=== PATIENT | female | born 1955 | race Caucasian/White ===

== ENCOUNTER → 2016-11-01 | Outpatient (CLI) | payer OTHER, BC ==
--- NOTE | 2016-11-01 10:21 | BD ---
EXAMINATION TYPE: MG DEXA axial skeleton. DATE OF EXAM: 11/01/2016 CLINICAL HISTORY: M19.90 Osetoarthritis Height: 66.5 Weight: 163 FRAX RISK QUESTIONS: Alcohol (3 or more units per day): no Family History (Parent hip fracture): no Glucocorticoids (More than 3mos): no (Ex: prednisone, prednisolone, methylprednisolone, dexamethasone, and hydrocortisone). History of Fracture in Adulthood: no Secondary Osteoporosis: 1. Type 1 Diabetes: no 2. Hyperthyroidism: no 3. Menopause before 45: no 4. Malnutrition: no 5. Chronic liver disease: no Rheumatoid Arthritis: no Current Tobacco Use: no RISK FACTORS HISTORY OF: Hip Fracture (Right/Left): no Spine Fracture: no History of Wrist Fracture: no Surgery to Spine/Hip(right/left)/Wrist (right/left): no Family History of Osteoporosis: no Active: yes Diet low in dairy products/other sources of calcium: no Postmenopausal woman: yes Take estrogen and/or progesterone medications: no Lost more than 2 inches in height since high school: no Frequent falls: no Poor Health: no Hyperparathyroidism: no Adrenal Insufficiency: no MEDICATIONS: Prednisone or other steroids: no Thyroid Medications: no Osteoporosis Medications: no Additional Medications: cholesterol meds, Vitamin D & calcium Additional History: lower back pain/osteoarthritis EXAM MEASUREMENTS: Bone mineral densitometry was performed using the User Replay System. Bone mineral density as measured about the Lumbar spine is: ----- L1-L4(G/cm2): 1.266 T Score Values are as follows: ----- L2: 0.4 ----- L3: 1.3 ----- L4: 0.3 ----- L1-L4: 0.7 Bone mineral density BASELINE Bone mineral density about the R hip (g/cm2): 0.931 Bone mineral density about the L hip (g/cm2): 0.945 T Score values are as follows: -----R Neck: -0.8 -----L Neck: -0.7 -----R Total: -0.2 -----L Total: 0.1 Bone mineral density BASELINE IMPRESSION: Normal (Values between +1 and -1 indicate normal bone mass). Consider repeating this study in 5 year s or sooner if there is some new clinical indication. Lumbar Spine , Bilateral Necks & Bilateral Tota ls NOTE: T-SCORE=SD OF THE YOUNG ADULT MEAN.
== END | disposition home or self-care (01) ==
LOC: RADBDWWP 07:47
PROVIDERS: ATTEND Family Medicine
DX: M19.90 Unspecified osteoarthritis, unspecified site (principal)
CPT/HCPCS: 77080

== ENCOUNTER → 2018-07-28 | Day surgery (SDC) | payer OTHER, BC ==
[2018-07-23 16:00] VITALS: BMI 24.3
[~2018-07-28] MED LIST: LACTATED RINGERS 1,000 ML IV SCH; LIDOCAINE 1% INJ 10MG/ML (20 ML MDV) ONE; PROPOFOL 10 MG/ML 20 ML VIAL IV ONE; fentaNYL (PF) 50 MCG/ML 2 ML AMP ONE
[2018-07-28 07:17] VITALS: TEMP 97.1
--- NOTE | 2018-07-28 07:57 | P.GSHP ---
History of Present Illness H&P Date: 07/28/18 Chief Complaint: GERD, diverticulitis This is a 6-year-old female has a history of GERD. Patient was also quite the left lower quadrant pain and diverticulitis. She was a safer EGD and colonoscopy. Past Medical History Past Medical History: Hyperlipidemia Additional Past Medical History / Comment(s): raynaud's History of Any Multi-Drug Resistant Organisms: None Reported Past Surgical History: Cholecystectomy, Hernia Repair, Hysterectomy Additional Past Surgical History / Comment(s): HIATAL HERNIA. colonoscopy, egd Past Anesthesia/Blood Transfusion Reactions: No Reported Reaction Smoking Status: Former smoker - Past Family History Mother Family Medical History: No Reported History Medications and Allergies Home Medications Medication Instructions Recorded Confirmed Type Aspirin 81 mg PO DAILY 05/24/15 07/28/18 History Atorvastatin [Lipitor] 10 mg PO DAILY 07/23/18 07/28/18 History amLODIPine BESYLATE [Norvasc] 2.5 mg PO DAILY 07/23/18 07/28/18 History Allergies Allergy/AdvReac Type Severity Reaction Status Date / Time No Known Allergies Allergy Verified 07/23/18 15:56 Surgical - Exam Vital Signs Temp Pulse Resp BP Pulse Ox 97.1 F L 99 14 138/73 99 07/28/18 07:16 07/28/18 07:16 07/28/18 07:16 07/28/18 07:16 07/28/18 07:16 - General well developed, well nourished, no distress - Eyes PERRL - ENT normal pinna - Neck no masses - Respiratory normal expansion - Cardiovascular Rhythm: regular - Abdomen Abdomen: soft, non tender Assessment and Plan Assessment: GERD, diverticula is. We'll perform EGD and colonoscopy
[2018-07-28 08:27] VITALS: RESP 18
[2018-07-28 08:43] VITALS: BP 118/75; PULSE 69
--- NOTE | 2018-07-28 09:08 | P.OP ---
Date of Procedure: 07/28/18 Preoperative Diagnosis: GERD Diverticulitis Postoperative Diagnosis: Antral gastritis Moderate Diverticulosis of sigmoid colon Procedure(s) Performed: EGD Colonoscopy Anesthesia: MAC Surgeon: Elbert Grimm Pathology: other (Antrum) Condition: stable Disposition: PACU Description of Procedure: The patient's placed on the endoscopy table in the lateral position she received IV sedation. The gastric was placed oropharynx and passed into the esophagus and stomach. The scope was then placed through the pylorus. The first and second portion of the duodenum appeared normal. The scope was then brought back the antrum this. Mildly inflamed. A biopsy was performed. Scope was then retroflexed and the remainder of the stomach appeared normal. There was no evidence of a hiatal hernia. The GE junction was at 40 cm. The distal esophagus appeared normal. The proximal esophagus appeared normal. Scope was withdrawn for patient. Next digital rectal exam was performed which revealed no abnormalities. The flexible colonoscope was then placed patient anus and passed throughout the entire colon. The ileocecal valve was visualized. The cecum, ascending and transverse colon appeared normal. In the descending and sigmoid colon there was diverticula noted. There was significant diverticulosis of the sigmoid colon. The scope was brought back the rectum and this appeared normal. Scope was withdrawn for patient.
== END | disposition home or self-care (01) ==
LOC: ORWHC2ENDO 06:52
PROVIDERS: ATTEND Surgery
DX: K29.50 Unspecified chronic gastritis without bleeding (principal); K57.30 Diverticulosis of large intestine without perforation or abscess without bleeding; K44.9 Diaphragmatic hernia without obstruction or gangrene; K21.9 Gastro-esophageal reflux disease without esophagitis; I10 Essential (primary) hypertension; I73.00 Raynaud's syndrome without gangrene; E78.5 Hyperlipidemia, unspecified; Z79.82 Long term (current) use of aspirin; Z87.891 Personal history of nicotine dependence; Z79.899 Other long term (current) drug therapy; Z90.49 Acquired absence of other specified parts of digestive tract
CPT/HCPCS: 88305; 45378; 43239; J2001; J3010; J2704

== ENCOUNTER 2019-09-25 14:28 | Emergency (ER) | payer BC ==
[2019-09-25 14:42] VITALS: TEMP 97.7
[2019-09-25] MEDS ORDERED: MORPHINE SULFATE 4 MG/ML SYRINGE IVP STA (15:17)
--- NOTE | 2019-09-25 15:19 | ED ---
General Adult HPI - General Chief complaint: Headache Stated complaint: burning feeling in feet that shoots through body Time Seen by Provider: 09/25/19 15:06 Source: patient, RN notes reviewed Mode of arrival: wheelchair Limitations: no limitations - History of Present Illness Initial comments: 63-year-old female with a past medical history of hyperlipidemia, Raynaud's presents to the emergency determine for a chief complaint of burning in the legs and headache. Patient states burning is negative to the chest back and arms as well. Patient states she was told by her primary care she has nerve damage. Patient has been trying to see a neurologist but cannot get in for another couple weeks. Patient states this has been ongoing for several months however worsened in the past 3 weeks. Denies weakness in the arms or legs. Denies diabetes.Patient has no other complaints at this time including shortness of breath, chest pain, abdominal pain, nausea or vomiting, headache, or visual changes. - Related Data Home Medications Medication Instructions Recorded Confirmed Aspirin 81 mg PO DAILY 05/24/15 07/28/18 Atorvastatin [Lipitor] 10 mg PO DAILY 07/23/18 07/28/18 amLODIPine BESYLATE [Norvasc] 2.5 mg PO DAILY 07/23/18 07/28/18 Allergies Allergy/AdvReac Type Severity Reaction Status Date / Time No Known Allergies Allergy Verified 09/25/19 14:42 Review of Systems ROS Statement: Those systems with pertinent positive or pertinent negative responses have been documented in the HPI. ROS Other: All systems not noted in ROS Statement are negative. Past Medical History Past Medical History: Hyperlipidemia Additional Past Medical History / Comment(s): raynaud's History of Any Multi-Drug Resistant Organisms: None Reported Past Surgical History: Cholecystectomy, Hernia Repair, Hysterectomy Additional Past Surgical History / Comment(s): HIATAL HERNIA. colonoscopy, egd Past Anesthesia/Blood Transfusion Reactions: No Reported Reaction Past Psychological History: No Psychological Hx Reported Smoking Status: Former smoker - Past Family History Mother Family Medical History: No Reported History General Exam Limitations: no limitations General appearance: alert, in no apparent distress Head exam: Present: atraumatic, normocephalic, normal inspection Eye exam: Present: normal appearance, PERRL, EOMI. Absent: scleral icterus, conjunctival injection, periorbital swelling ENT exam: Present: normal exam, mucous membranes moist Neck exam: Present: normal inspection, full ROM. Absent: tenderness, meningismus, lymphadenopathy Respiratory exam: Present: normal lung sounds bilaterally. Absent: respiratory distress, wheezes, rales, rhonchi, stridor Cardiovascular Exam: Present: regular rate, normal rhythm, normal heart sounds. Absent: systolic murmur, diastolic murmur, rubs, gallop, clicks GI/Abdominal exam: Present: soft, normal bowel sounds. Absent: distended, tenderness, guarding, rebound, rigid Extremities exam: Present: normal capillary refill (Capillary refill less than 2 seconds in lower extremities bilaterally, DP and PT pulses 2+ bilaterally. Radial pulses 2+ in upper extremities.), other (Strength 5 out of 5 in upper and lower extremities bilaterally) Neurological exam: Present: alert, normal gait Course Vital Signs 09/25/19 09/25/19 14:37 16:10 Temperature 97.7 F Pulse Rate 104 H 66 Respiratory 18 16 Rate Blood Pressure 175/115 143/87 O2 Sat by Pulse 100 99 Oximetry Medical Decision Making - Medical Decision Making Chair and physical exam as documented. Sensation and neurovascular status intact in lower extremities. Strength 5 out of 5 in upper and lower extremities. CBC CMP unremarkable. CT brain shows mild bifrontal atrophy without acute intracranial abnormality seen. Patient was given morphine and had complete resolution of symptoms. This does some again neuropathy or paresthesia. I recommended she follow up with neurology and I did give her the name of another neurologist to see if she could get in earlier. Patient states she has not yet seen her primary care provider for this and will see her as well to calling for an appointment on Saturday. - Lab Data Result diagrams: 09/25/19 15:32 09/25/19 15:32 Lab Results 09/25/19 09/25/19 Range/Units 15:32 15:32 WBC 8.2 (3.8-10.6) k/uL RBC 4.99 (3.80-5.40) m/uL Hgb 15.6 (11.4-16.0) gm/dL Hct 48.1 H (34.0-46.0) % MCV 96.4 (80.0-100.0) fL MCH 31.3 (25.0-35.0) pg MCHC 32.4 (31.0-37.0) g/dL RDW 12.5 (11.5-15.5) % Plt Count 280 (150-450) k/uL Neutrophils % 69 % Lymphocytes % 20 % Monocytes % 5 % Eosinophils % 3 % Basophils % 1 % Neutrophils # 5.7 (1.3-7.7) k/uL Lymphocytes # 1.6 (1.0-4.8) k/uL Monocytes # 0.5 (0-1.0) k/uL Eosinophils # 0.2 (0-0.7) k/uL Basophils # 0.1 (0-0.2) k/uL Sodium 139 (137-145) mmol/L Potassium 3.9 (3.5-5.1) mmol/L Chloride 104 (98-107) mmol/L Carbon Dioxide 27 (22-30) mmol/L Anion Gap 8 mmol/L BUN 11 (7-17) mg/dL Creatinine 0.79 (0.52-1.04) mg/dL Est GFR (CKD-EPI)AfAm >90 (>60 ml/min/1.73 sqM) Est GFR (CKD-EPI)NonAf 81 (>60 ml/min/1.73 sqM) Glucose 123 H (74-99) mg/dL Calcium 9.8 (8.4-10.2) mg/dL Magnesium 2.0 (1.6-2.3) mg/dL Total Bilirubin 0.7 (0.2-1.3) mg/dL AST 29 (14-36) U/L ALT 28 (4-34) U/L Alkaline Phosphatase 117 (38-126) U/L Total Protein 7.4 (6.3-8.2) g/dL Albumin 4.4 (3.5-5.0) g/dL Disposition Clinical Impression: Neuropathy, Tingling in extremities Disposition: HOME SELF-CARE Condition: Good Instructions (If sedation given, give patient instructions): Paresthesia (ED) Additional Instructions: Please follow up with primary care as well as neurology. Given any worsening symptoms return to the emergency room. Is patient prescribed a controlled substance at d/c from ED?: No Referrals: Elvis Hurst MD [Medical Doctor] - 1-2 days Time of Disposition: 17:33
[2019-09-25 15:50] LABS: Basophils # (A) 0.1 k/uL (0-0.2); Basophils % (A) 1 %; Eosinophils # (A) 0.2 k/uL (0-0.7); Eosinophils % (A) 3 %; HCT 48.1 % (34.0-46.0); HGB 15.6 gm/dL (11.4-16.0); Lymphocytes # (A) 1.6 k/uL (1.0-4.8); Lymphocytes % (A) 20 %; MCH 31.3 pg (25.0-35.0); MCHC 32.4 g/dL (31.0-37.0); MCV 96.4 fL (80.0-100.0); Mean Platelet Volume 7.6; Monocytes # (A) 0.5 k/uL (0-1.0); Monocytes % (A) 5 %; Neutrophils # (A) 5.7 k/uL (1.3-7.7); Neutrophils % (A) 69 %; Platelet Count 280 k/uL (150-450); RBC 4.99 m/uL (3.80-5.40); RDW 12.5 % (11.5-15.5); WBC 8.2 k/uL (3.8-10.6)
[2019-09-25 15:59] LABS: ALT 28 U/L (4-34); AST 29 U/L (14-36); African American GFR (CKD) >90 (>60 ml/min/1.73 sqM); Albumin 4.4 g/dL (3.5-5.0); Alkaline Phosphatase 117 U/L (38-126); Anion Gap 8 mmol/L; Blood Urea Nitrogen 11 mg/dL (7-17); Calcium 9.8 mg/dL (8.4-10.2); Carbon Dioxide 27 mmol/L (22-30); Chloride 104 mmol/L (98-107); Glucose 123 mg/dL (74-99); Non-African American GFR(CKD) 81 (>60 ml/min/1.73 sqM); Potassium 3.9 mmol/L (3.5-5.1); Sodium 139 mmol/L (137-145); Total Bilirubin 0.7 mg/dL (0.2-1.3); Total Protein 7.4 g/dL (6.3-8.2)
--- NOTE | 2019-09-25 16:01 | CT ---
EXAMINATION TYPE: CT brain wo con DATE OF EXAM: 09/25/2019 COMPARISON: None HISTORY: 63-year-old female Headache with burning sensation. TECHNIQUE: Examination was done in axial plane without intravenous contrast. Coronal and sagittal r econstructions performed. CT DLP: 1095.4 mGycm Automated exposure control for dose reduction was used. FINDINGS: There is no evidence of acute intracranial hemorrhage, acute ischemic changes, mass, mass-effect, or extra-axial fluid collection. There is no effacement of cerebral sulci or basal subarachnoid cister ns. There is no hydrocephalus. There is no midline shift. Carter-white matter distinction is preserv ed. Mild bifrontal cortical atrophy. Mild atherosclerotic calcifications in the bilateral carotid siphons . Paranasal sinuses and mastoid air cells are well-pneumatized. Slight rightward nasal septal deviation . Orbits and globes are intact. IMPRESSION: Mild bifrontal atrophy. No acute intracranial abnormality seen.
[2019-09-25 16:11] VITALS: BP 143/87; PULSE 66; RESP 16
[2019-09-25] MEDS ORDERED: ACET/COD 300 MG/30 MG STARTER PACK 6 TAB BTL PO STA (17:59)
== END 2019-09-25 18:07 | disposition home or self-care (01) ==
LOC: EC 14:28
DX: G62.9 Polyneuropathy, unspecified (principal); G31.9 Degenerative disease of nervous system, unspecified; I73.00 Raynaud's syndrome without gangrene; E78.5 Hyperlipidemia, unspecified; Z79.82 Long term (current) use of aspirin; Z79.899 Other long term (current) drug therapy; Z87.891 Personal history of nicotine dependence
CPT/HCPCS: 36415; 80053; 83735; 85025; 70450; 96374; 99284; J2270

== ENCOUNTER → 2019-11-20 | Outpatient (CLI) | payer BC ==
--- NOTE | 2019-11-20 11:55 | US ---
EXAMINATION TYPE: US duplex aorta DATE OF EXAM: 11/20/2019 COMPARISON: None CLINICAL HISTORY: 64-year-old female I70.0 aortic calcification. Pt states outside MRI showed aortic abnormality TECHNIQUE: Multiple sonographic images of the abdominal aorta are obtained. FINDINGS: EXAM MEASUREMENTS: Abdominal Aorta: Proximal: 1.8 x 2.1 cm Mid: 2.2 x 2.7 cm Distal: 2.4 x 2.6 cm Bifurcation: SILVA: 1.1 x 1.1 cm JARETT: 1.1 x 1.1 cm Segments of fusiform dilatation are present along with atherosclerotic calcifications throughout. IMPRESSION: Segments of fusiform dilatation with atherosclerotic calcifications throughout. There is mild ectasia of the mid abdominal aorta up to 2.7 cm and of the distal abdominal aorta up to 2.6 cm. No AAA.
== END | disposition home or self-care (01) ==
LOC: RADUSWWP 09:40
PROVIDERS: ATTEND Family Medicine
DX: I70.0 Atherosclerosis of aorta (principal); I77.811 Abdominal aortic ectasia
CPT/HCPCS: 93979

== ENCOUNTER → 2020-03-29 | Outpatient (CLI) | payer BC ==
--- NOTE | 2020-04-28 09:58 | P.ARTDOP ---
Arterial Doppler LOWER EXTREMITY ARTERIAL DOPPLER: DATE OF SERVICE: 03/29/2020 Reason for study: Bilateral lower leg pain Doppler waveforms: Multiphasic throughout. Digital waveforms are somewhat blunted. Pulse volume recording: []. Pressure gradients: None. Ankle-brachial indices: Greater than 1 bilaterally. Toe brachial indices: 0.94 on the right, 1 on the left Impression: Normal study.
== END | disposition home or self-care (01) ==
LOC: RADUSWWP 12:48
PROVIDERS: ATTEND Family Medicine
DX: R20.2 Paresthesia of skin (principal)
CPT/HCPCS: 93922; 93923

== ENCOUNTER 2020-07-11 11:48 | Day surgery (SDC) | payer BC ==
[2020-07-08 08:21] VITALS: BMI 25.0
[~2020-07-11 11:48] MED LIST changes: -LIDOCAINE 1% INJ 10MG/ML (20 ML MDV) ONE; -PROPOFOL 10 MG/ML 20 ML VIAL IV ONE; -fentaNYL (PF) 50 MCG/ML 2 ML AMP ONE
[2020-07-11] MEDS ORDERED: LIDOCAINE 1% (10MG/ML) FOR IV START INTRADERMA ONE (12:13)
[2020-07-11 12:19] VITALS: TEMP 98.7
[2020-07-11] MEDS ORDERED: PROPOFOL 10 MG/ML 20 ML VIAL IV ONE (14:13)
[2020-07-11] MEDS ORDERED: LIDOCAINE 1% INJ 10MG/ML (20 ML MDV) ONE (14:13)
[2020-07-11 14:34] VITALS: RESP 16
[2020-07-11 14:54] VITALS: BP 121/77; PULSE 63
--- NOTE | 2020-07-11 15:42 | P.GSHP ---
History of Present Illness H&P Date: 07/11/20 .GERD Past Medical History Past Medical History: GERD/Reflux, Hyperlipidemia Additional Past Medical History / Comment(s): hiatal hernia, raynaud's, History of Any Multi-Drug Resistant Organisms: None Reported Past Surgical History: Cholecystectomy, Hernia Repair, Hysterectomy Additional Past Surgical History / Comment(s): hiatal hernia repair, Past Anesthesia/Blood Transfusion Reactions: No Reported Reaction Smoking Status: Former smoker - Past Family History Mother Family Medical History: No Reported History Medications and Allergies Home Medications Medication Instructions Recorded Confirmed Type Aspirin 81 mg PO DAILY 05/24/15 07/08/20 History Atorvastatin [Lipitor] 10 mg PO HS 07/23/18 07/08/20 History Famotidine [Pepcid] 20 mg PO BID 07/08/20 07/08/20 History Multivitamins, Thera [Multivitamin 1 tab PO DAILY 07/08/20 07/08/20 History (formulary)] Pregabalin [Lyrica] 150 mg PO TID 07/08/20 07/08/20 History Allergies Allergy/AdvReac Type Severity Reaction Status Date / Time No Known Allergies Allergy Verified 07/11/20 12:14 Surgical - Exam Vital Signs Temp Pulse Resp BP Pulse Ox 98.7 F 59 L 18 123/69 98 07/11/20 12:17 07/11/20 12:17 07/11/20 12:17 07/11/20 12:17 07/11/20 12:17 - General well developed, well nourished, no distress - Eyes PERRL - ENT normal pinna - Neck no masses - Respiratory normal expansion - Cardiovascular Rhythm: regular - Abdomen Abdomen: soft, non tender Assessment and Plan Assessment: GERD. We'll perform EGD.
--- NOTE | 2020-07-11 15:47 | P.OP ---
Date of Procedure: 07/11/20 Preoperative Diagnosis: .gerd Postoperative Diagnosis: Antral gastritis Recurrent hiatal hernia Procedure(s) Performed: EGD Anesthesia: MAC Surgeon: Elbert Grimm Pathology: other (antrum, cardia) Condition: stable Disposition: PACU Description of Procedure: the patient's placed on the endoscopy table in the lateral position. She received IV sedation. The gastroscope placed oropharynx past esophagus stomach. Scope then placed through the pylorus. The first and second portion of duodenum appeared normal. Scope was then brought back the antrum was inflamed a biopsy was performed. The scope was then retroflexed remainder stomach appeared normal. The GE junction was at 38 cm. Patient had a large recurrent hiatal hernia. The cardia there is evidence of inflammation. This area is biopsied. The distal esophagus appeared mildly inflamed. The proximal esophagus appeared normal. The scope was withdrawn for patient.
== END 2020-07-11 15:16 | disposition home or self-care (01) ==
LOC: ORWHC2ENDO 11:48
PROVIDERS: ATTEND Surgery
DX: K29.50 Unspecified chronic gastritis without bleeding (principal); K44.9 Diaphragmatic hernia without obstruction or gangrene; K21.9 Gastro-esophageal reflux disease without esophagitis; E78.5 Hyperlipidemia, unspecified; I73.00 Raynaud's syndrome without gangrene; Z90.49 Acquired absence of other specified parts of digestive tract; Z90.710 Acquired absence of both cervix and uterus; Z98.890 Other specified postprocedural states; Z87.891 Personal history of nicotine dependence; Z79.82 Long term (current) use of aspirin; Z79.899 Other long term (current) drug therapy
CPT/HCPCS: 88305; 43239; J2001; J2704

== ENCOUNTER → 2020-07-21 | Outpatient (CLI) | payer BC | END | disposition home or self-care (01) | LOC: LABWHC1 14:26 | PROVIDERS: ATTEND Surgery | DX: Z01.818 Encounter for other preprocedural examination (principal); R13.19 Other dysphagia | CPT/HCPCS: 86850; 86900; 86901; 93005 ==

== ENCOUNTER 2020-07-27 08:40 | Inpatient (IN) | payer BC ==
[~2020-07-27 08:40] MED LIST changes: +ACETAMINOPHEN TAB 500 MG TAB PO PRN; +HEPARIN SODIUM,PORCINE 5,000 UNIT/ML 1 ML VIAL SQ PRN; -LACTATED RINGERS 1,000 ML IV SCH; +ONDANSETRON 4 MG/2 ML VIAL IVP ONE
[2020-07-27] MEDS ORDERED: ONDANSETRON 4 MG/2 ML VIAL ONE (10:39)
[2020-07-27] MEDS: LACTATED RINGERS 1,000 ML IV SCH ×2 (11:00→17:17)
--- NOTE | 2020-07-27 11:19 | P.GSHP ---
History of Present Illness H&P Date: 07/27/20 Chief Complaint: Dysphagia This 64 female who presents today for laparoscopic hiatal hernia repair. Patient has a previous history of hiatal hernia. Approximately 17 years ago she has developed recurrent per esophageal hernia. He is reversed surgery including conversion O procedure and injury to the stomach liver spleen she also aware of the risk of recurrent dysphagia and GERD Past Medical History Past Medical History: GERD/Reflux, Hyperlipidemia, Musculoskeletal Disorder Additional Past Medical History / Comment(s): hiatal hernia, raynaud's, nerve damage right leg History of Any Multi-Drug Resistant Organisms: None Reported Past Surgical History: Cholecystectomy, Hernia Repair, Hysterectomy Additional Past Surgical History / Comment(s): hiatal hernia repair Past Anesthesia/Blood Transfusion Reactions: No Reported Reaction Smoking Status: Former smoker - Past Family History Mother Family Medical History: No Reported History Medications and Allergies Home Medications Medication Instructions Recorded Confirmed Type Aspirin 81 mg PO DAILY 05/24/15 07/27/20 History Atorvastatin [Lipitor] 10 mg PO HS 07/23/18 07/27/20 History Famotidine [Pepcid] 20 mg PO BID 07/08/20 07/27/20 History Multivitamins, Thera [Multivitamin 1 tab PO DAILY 07/08/20 07/27/20 History (formulary)] Pregabalin [Lyrica] 150 mg PO TID 07/08/20 07/27/20 History Zolpidem [Ambien] 10 mg PO HS PRN 07/22/20 07/27/20 History Allergies Allergy/AdvReac Type Severity Reaction Status Date / Time No Known Allergies Allergy Verified 07/27/20 11:12 Surgical - Exam Vital Signs Temp Pulse Resp BP Pulse Ox 98 F 74 16 133/74 99 07/27/20 10:47 07/27/20 10:47 07/27/20 10:47 07/27/20 10:47 07/27/20 10:47 - General well developed, well nourished, no distress - Eyes PERRL - ENT normal pinna - Neck no masses - Respiratory normal expansion - Cardiovascular Rhythm: regular - Abdomen Abdomen: soft, non tender Assessment and Plan Assessment: Recurrent paraesophageal hernia. We'll perform laparoscopic repair.
[2020-07-27] MEDS ORDERED: DEXAMETHASONE SOD PHOSPHATE 4 MG/ML 1 ML VIAL IV ONE (11:28)
[2020-07-27] MEDS ORDERED: NEOSTIGMINE 1 MG/ML 10 ML VIAL ONE (12:08)
[2020-07-27] MEDS ORDERED: ePHEDrine SULFATE/0.9% NACL/PF 50 MG/5 ML SYRINGE IV ONE (12:08)
[2020-07-27] MEDS ORDERED: GLYCOPYRROLATE 0.2 MG/ML 2 ML VIAL ONE (12:08)
[2020-07-27] MEDS ORDERED: KETOROLAC 15 MG/ML 1 ML VIAL ONE (12:08)
[2020-07-27] MEDS ORDERED: LIDOCAINE 1% INJ 10MG/ML (20 ML MDV) ONE (12:08)
[2020-07-27] MEDS ORDERED: SUCCINYLCHOLINE CHLORIDE 100 MG/5 ML SYR IV ONE (12:08)
[2020-07-27] MEDS ORDERED: ROCURONIUM 10 MG/ML (5 ML VIAL) IV ONE (12:08)
[2020-07-27] MEDS ORDERED: HYDROmorphone (PF) 1 MG/ML ONE (12:08)
[2020-07-27] MEDS ORDERED: fentaNYL (PF) 50 MCG/ML 2 ML AMP ONE (12:08)
[2020-07-27] MEDS ORDERED: LACTATED RINGERS 1,000 ML IV ONE ×2 (12:50)
[2020-07-27] MEDS ORDERED: BUPIVACAINE (PF) 0.25% 30 ML VIAL SQ ONE (13:05)
[2020-07-27] MEDS ORDERED: ONDANSETRON 4 MG/2 ML VIAL IVP PRN (13:20)
--- NOTE | 2020-07-27 13:20 | P.OP ---
Date of Procedure: 07/27/20 Preoperative Diagnosis: Paraesophageal hernia Postoperative Diagnosis: Paraesophageal hernia Procedure(s) Performed: Laparoscopic repair of paraesophageal hernia with mesh [place] [employer] a Anesthesia: SG Surgeon: Elbert Grimm Estimated Blood Loss (ml): 10 Pathology: none sent Condition: stable Disposition: PACU Description of Procedure: Harmonic June
[2020-07-27] MEDS: HYDROmorphone 0.5 MG/0.5 ML SYRINGE IVP PRN ×4 (13:37→14:22)
[2020-07-27 14:28] LABS: African American GFR (CKD) >90 (>60 ml/min/1.73 sqM); Anion Gap 7 mmol/L; Blood Urea Nitrogen 12 mg/dL (7-17); Calcium 8.9 mg/dL (8.4-10.2); Carbon Dioxide 24 mmol/L (22-30); Chloride 107 mmol/L (98-107); Glucose 142 mg/dL (74-99); Non-African American GFR(CKD) 78 (>60 ml/min/1.73 sqM); Potassium 4.3 mmol/L (3.5-5.1); Sodium 138 mmol/L (137-145)
[2020-07-27] MEDS ORDERED: diphenhydrAMINE 50 MG/ML 1 ML VIAL IVP ONE (14:28)
--- NOTE | 2020-07-27 14:28 | P.CRDCN ---
History of Present Illness History of present illness: HISTORY OF PRESENTING ILLNESS This is a pleasant 64-year-old female past medical history significant for GERD and hyperlipidemia. 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 We have been asked to see in consultation for post operative nonsustained ventricular tachycardia. Patient presents today for a laparoscopic hiatal hernia repair with Dr. Grimm. Post op, during recovery patient went into 29 beat run of non-sustained ventricular tachycardia. Patient is seen and examined in recovery. Drowsy, alert and oriented x 4. BP 132/62 HR 56, afebrile, maintaing oxygen saturations on 6L simple mask. Ventricular tachycardia strip indicates a rate around 100bpm. EKG reveals sinus bradycardia with T wave inversions in leads III and aVF. Prior EKG on 07/21/2020 normal sinus rhythm with Twave inversions in lead III. Telemetry tracings at bedside indicate sinus bradycardia. Patient's current home medications include atorvastatin 10mg nightly, aspirin 81mg daily. REVIEW OF SYSTEMS At the time of my exam: CONSTITUTIONAL: Denies fever or chills. CARDIOVASCULAR: +mild left sided chest pain. Denies shortness of breath, orthopnea, PND or palpitations. RESPIRATORY: Denies cough. GASTROINTESTINAL: Denies abdominal pain, diarrhea, constipation, nausea or vomiting. MUSCULOSKELETAL: Denies myalgias. NEUROLOGIC: Denies numbness, tingling, headacbe or weakness. ENDOCRINE: Denies fatigue, weight change, polydipsia or polyurina. GENITOURINARY: Denies burning, hematuria or urgency with micturation. HEMATOLOGIC: Denies history of anemia or bleeding. PHYSICAL EXAMINATION CONSTITUTIONAL: No apparent distress. HEENT: Head is normocephalic. Pupils are equal, round. Sclerae anicteric. Mucous membranes of the mouth are moist. No JVD. No carotid bruit. CHEST EXAMINATION: Lungs are clear to auscultation. No chest wall tenderness is noted on palpation or with deep breathing. HEART EXAMINATION: Regular rate and rhythm. S1, S2 heard. No murmurs, gallops or rub. ABDOMEN: Soft, nontender. Positive bowel sounds. EXTREMITIES: 2+ peripheral pulses, no lower extremity edema and no calf tenderness. NEUROLOGIC EXAMINATION: Patient is awake, alert and oriented x3. ASSESSMENT Non-sustained ventricular tachycardia Hyperlipidemia Hiatal Hernia s/p laparoscopic hiatal hernia repair PLAN Will obtain labs: Troponin, BMP, Magnesium, TSH Will obtain 2D echo Will monitor patient on cardiac telemetry overnight Nurse Practitioner note has been reviewed, I agree with a documented findings and plan of care. Patient was seen and examined. Past Medical History Past Medical History: GERD/Reflux, Hyperlipidemia, Musculoskeletal Disorder Additional Past Medical History / Comment(s): hiatal hernia, raynaud's, nerve damage right leg History of Any Multi-Drug Resistant Organisms: None Reported Past Surgical History: Cholecystectomy, Hernia Repair, Hysterectomy Additional Past Surgical History / Comment(s): hiatal hernia repair Past Anesthesia/Blood Transfusion Reactions: No Reported Reaction Smoking Status: Former smoker - Past Family History Mother Family Medical History: No Reported History Medications and Allergies Home Medications Medication Instructions Recorded Confirmed Type Aspirin 81 mg PO DAILY 05/24/15 07/27/20 History Atorvastatin [Lipitor] 10 mg PO HS 07/23/18 07/27/20 History Famotidine [Pepcid] 20 mg PO BID 07/08/20 07/27/20 History Multivitamins, Thera [Multivitamin 1 tab PO DAILY 07/08/20 07/27/20 History (formulary)] Pregabalin [Lyrica] 150 mg PO TID 07/08/20 07/27/20 History Zolpidem [Ambien] 10 mg PO HS PRN 07/22/20 07/27/20 History Allergies Allergy/AdvReac Type Severity Reaction Status Date / Time No Known Allergies Allergy Verified 07/27/20 11:12 Physical Exam Vitals: Vital Signs Temp Pulse Resp BP Pulse Ox 07/27/20 14:00 56 L 14 132/62 96 07/27/20 13:45 59 L 16 135/67 94 L 07/27/20 13:23 97.4 F L 100 20 157/75 96 07/27/20 10:47 98 F 74 16 133/74 99 Intake and Output 07/26/20 07/27/20 07/27/20 22:59 06:59 14:59 Intake Total 1450 Output Total 5 Balance 1445 Intake: IV 1450 Output: Estimated Blood Loss 5 Other: Weight 82 kg Results Current Medications Generic Name Dose Route Start Last Admin Trade Name Freq PRN Reason Stop Dose Admin Enoxaparin Sodium 40 mg 07/28/20 09:00 Enoxaparin 40 Mg/0.4 Ml Syringe SQ DAILY BALAJI Fentanyl Citrate 50 mcg 07/27/20 07:00 Fentanyl (Pf) 50 Mcg/Ml 2 Ml Amp IV 07/27/20 23:00 Q3M PRN Pain Control Hydromorphone HCl 0.5 mg 07/27/20 07:00 07/27/20 13:56 Hydromorphone 0.5 Mg/0.5 Ml Syringe IVP 07/27/20 23:00 0.5 mg Q5M PRN Administration Pain Control Hydromorphone HCl 1 mg 07/27/20 13:20 Hydromorphone 1 Mg/Ml 1 Ml Syringe IVP Q4HR PRN Pain Lactated Ringer's 1,000 mls @ 20 mls/hr 07/26/20 08:15 07/27/20 11:00 Lactated Ringers IV 1,000 mls .Q24H BALAJI Administration Potassium Chloride/Dextrose/Sod Cl 1,000 mls @ 125 mls/hr 07/27/20 14:00 D5%-1/2ns-Kcl 20 Meq/L Iv Solution IV .Q8H BALAJI Ondansetron HCl 4 mg 07/27/20 13:20 Ondansetron 4 Mg/2 Ml Vial IVP Q6HR PRN Nausea And Vomiting Intake and Output 07/26/20 07/27/20 07/27/20 22:59 06:59 14:59 Intake Total 1450 Output Total 5 Balance 1445 Intake: IV 1450 Output: Estimated Blood Loss 5 Other: Weight 82 kg Patient Weight 07/28/20 06:59 Weight 82 kg
[2020-07-27 14:51] LABS: Basophils % (A) 1 %; Eosinophils # (A) 0.1 k/uL (0-0.7); Eosinophils % (A) 1 %; HCT 42.5 % (34.0-46.0); HGB 14.3 gm/dL (11.4-16.0); Lymphocytes # (A) 0.9 k/uL (1.0-4.8); Lymphocytes % (A) 11 %; MCH 31.9 pg (25.0-35.0); MCHC 33.7 g/dL (31.0-37.0); MCV 94.7 fL (80.0-100.0); Mean Platelet Volume 8.1; Monocytes # (A) 0.1 k/uL (0-1.0); Monocytes % (A) 1 %; Neutrophils % (A) 86 %; Platelet Count 192 k/uL (150-450); RBC 4.49 m/uL (3.80-5.40); RDW 13.1 % (11.5-15.5); WBC 8.1 k/uL (3.8-10.6)
[2020-07-27] MEDS ORDERED: HYDROmorphone 0.5 MG/0.5 ML SYRINGE IVP ONE (15:01)
[2020-07-27] MEDS: fentaNYL (PF) 50 MCG/ML 2 ML AMP IV PRN ×2 (15:05→15:27)
[2020-07-27] MEDS: D5-0.45% NACL WITH KCL 20MEQ/L 1,000 ML IV SCH (18:28)
[2020-07-27] MEDS ORDERED: ZOLPIDEM 10 MG TAB PO PRN (18:28)
--- NOTE | 2020-07-27 18:31 | P.CONS ---
History of Present Illness - Reason for Consult Consult date: 07/27/20 medical management - Chief Complaint Hernia repair - History of Present Illness 64 female with past medical history significant for GERD and hyperlipidemia who is currently s/p laparoscopic hiatal hernia repair. Currently she is doing well. Shortly after the surgery she was noted to have 29 beats run of nonsustained ventricular tachycardia. She is currnelty drowsy but denied any pain or sob. Vitals ok. She was already seen by cardiology, no cardiac history. EKG reveals sinus bradycardia with T wave inversions in leads III and aVF. Prior EKG on 07/21/2020 normal sinus rhythm with Twave inversions in lead III. Telemetry tracings at bedside indicate sinus bradycardia. Review of Systems Complete review of system performed, pertinent positives per HPI, otherwise negative Past Medical History Past Medical History: GERD/Reflux, Hyperlipidemia, Musculoskeletal Disorder Additional Past Medical History / Comment(s): hiatal hernia, raynaud's, nerve damage right leg History of Any Multi-Drug Resistant Organisms: None Reported Past Surgical History: Cholecystectomy, Hernia Repair, Hysterectomy Additional Past Surgical History / Comment(s): hiatal hernia repair Past Anesthesia/Blood Transfusion Reactions: No Reported Reaction Smoking Status: Former smoker - Past Family History Mother Family Medical History: No Reported History Medications and Allergies Home Medications Medication Instructions Recorded Confirmed Type Aspirin 81 mg PO DAILY 05/24/15 07/27/20 History Atorvastatin [Lipitor] 10 mg PO HS 07/23/18 07/27/20 History Famotidine [Pepcid] 20 mg PO BID 07/08/20 07/27/20 History Multivitamins, Thera [Multivitamin 1 tab PO DAILY 07/08/20 07/27/20 History (formulary)] Pregabalin [Lyrica] 150 mg PO TID 07/08/20 07/27/20 History Zolpidem [Ambien] 10 mg PO HS PRN 07/22/20 07/27/20 History Allergies Allergy/AdvReac Type Severity Reaction Status Date / Time No Known Allergies Allergy Verified 07/27/20 11:12 Physical Exam Vitals: Vital Signs Temp Pulse Resp BP Pulse Ox 07/27/20 16:00 96.1 F L 50 L 14 126/80 97 07/27/20 15:30 49 L 16 138/67 94 L 07/27/20 15:15 48 L 14 121/77 97 07/27/20 15:00 60 16 123/79 95 07/27/20 14:45 72 14 131/740 92 L 07/27/20 14:30 52 L 14 131/61 93 L 07/27/20 14:15 52 L 14 131/61 96 07/27/20 14:00 56 L 14 132/62 96 07/27/20 13:45 59 L 16 135/67 94 L 07/27/20 13:23 97.4 F L 100 20 157/75 96 07/27/20 10:47 98 F 74 16 133/74 99 Intake and Output 07/27/20 07/27/20 07/27/20 06:59 14:59 22:59 Intake Total 1450 Output Total 5 Balance 1445 Intake: IV 1450 Output: Estimated Blood Loss 5 Other: Weight 82 kg Constitutional: No acute distress, conversant, pleasant Eyes:Anicteric sclerae, moist conjunctiva, no lid-lag, PERRLA, ENMT: Oropharynx clear, no erythema, exudates Neck: Supple, FROM, no masses, or JVD, No carotid bruits, No thyromegaly Lungs: Clear to auscultation, Clear to percussion, Normal respiratory effort, no accessory muscle use Cardiovascular: Heart regular in rate and rhythm, No murmurs, gallops, or rubs, No peripheral edema Abdominal: Soft, Nontender, no guarding, rebound or rigidity, Normoactive bowel sounds, No hepatomegaly, No splenomegaly, No palpable mass Skin: Normal temperature, tone, texture, turgor, no induration, No subcutaneous nodules, No rash, lesions, No ulcers Extremities: No digital cyanosis, No clubbing, Pedal pulses intact and symmetrical, Radial pulses intact and symmetrical, No calf tenderness Psychiatric: Alert and oriented to person, place and time, appropriate affect, intact judgement Neuro: Muscles Strength 5/5 in all 4 extremities, Sensation to light touch grossly present throughout, Cranial nerves II-XII grossly intact, no focal sensory deficits Results CBC & Chem 7: 07/27/20 14:34 07/27/20 13:45 Labs: Abnormal Lab Results - Last 24 Hours (Table) 07/27/20 07/27/20 Range/Units 13:45 14:34 Lymphocytes # 0.9 L (1.0-4.8) k/uL Glucose 142 H (74-99) mg/dL Assessment and Plan Plan: Nonsustained v.tach Lytes, trops, TSH ok Cardio following Follow on echo, ordered. Hyperlipidemia Peripheral neuropathy Stable Resume meds S/P Laparoscopic repair of paraesophageal hernia Management per surgery Anticipated discharge 1-2 days Disposition: Home
[2020-07-27] MEDS: FAMOTIDINE 20 MG TAB PO SCH (20:33)
[2020-07-27] MEDS: HYDROmorphone 1 MG/ML 1 ML SYRINGE IVP PRN (20:34)
[2020-07-27] MEDS ORDERED: ATORVASTATIN 10 MG TAB PO SCH (21:00)
[2020-07-27] MEDS: PREGABALIN 75 MG CAP PO SCH (21:00)
[2020-07-28] MEDS: D5-0.45% NACL WITH KCL 20MEQ/L 1,000 ML IV SCH ×2 (00:13→02:24)
[2020-07-28] MEDS: HYDROmorphone 1 MG/ML 1 ML SYRINGE IVP PRN ×2 (00:28→07:56)
[2020-07-28] MEDS: PREGABALIN 75 MG CAP PO SCH (07:55)
[2020-07-28] MEDS: FAMOTIDINE 20 MG TAB PO SCH (07:56)
[2020-07-28] MEDS ORDERED: ENOXAPARIN 40 MG/0.4 ML SYRINGE SQ SCH (09:00)
[2020-07-28] MEDS ORDERED: ASPIRIN 81 MG PO SCH (09:00)
[2020-07-28] MEDS ORDERED: MULTIVITAMINS, THERA 1 EACH TAB PO SCH (09:00)
[2020-07-28] MEDS: LACTATED RINGERS 1,000 ML IV SCH (09:05)
[2020-07-28 09:26] VITALS: RESP 18
--- NOTE | 2020-07-28 09:44 | FL ---
EXAMINATION TYPE: FL esophagus cervic/pharynx DATE OF EXAM: 07/28/2020 COMPARISON: None HISTORY: Status post Miguel fundoplication TECHNIQUE: Single contrast technique with water-soluble contrast was utilized to evaluate the gastroe sophageal junction. FINDINGS: There is moderate hesitancy of contrast passing through the is on fundoplication surgery. N o extravasation is evident. Very minimal pneumoperitoneum is present compatible with postsurgical change. Fluoroscopy time: 0.53 minutes Images: 27 IMPRESSION: 1. No extravasation of contrast post Miguel fundoplication. 2. There is moderate hesitancy of contrast passing through the surgery site.
--- NOTE | 2020-07-28 09:53 | ECHOF ---
Referral Reason:non-sustained Vtach post op MEASUREMENTS -------- HEIGHT: 172.7 cm WEIGHT: 81.6 kg BP: 123/79 RVIDd: 3.0 cm (< 3.3) IVSd: 1.2 cm (0.6 - 1.1) LVIDd: 4.4 cm (3.9 - 5.3) LVPWd: 1.2 cm (0.6 - 1.1) IVSs: 1.9 cm LVIDs: 3.0 cm LVPWs: 1.5 cm LA Diam: 3.6 cm (2.7 - 3.8) Ao Diam: 2.7 cm (2.0 - 3.7) AV Cusp: 2.0 cm (1.5 - 2.6) MV EXCURSION: 8.785 mm (> 18.000) MV EF SLOPE: 71 mm/s (70 - 150) EPSS: 0.8 cm MV E Miguelito: 0.82 m/s MV DecT: 169 ms MV A Miguelito: 1.01 m/s MV E/A Ratio: 0.81 RAP: 5.00 mmHg RVSP: 32.66 mmHg FINDINGS -------- Resting bradycardia (HR<60bpm). This was a technically adequate study. The left ventricular size is normal. There is borderline concentric left ventricular hypertrophy. Overall left ventricular systolic function is normal with, an EF between 55 - 60 %. The right ventricle is normal in size. The left atrium is normal in size. The right atrium is normal in size. Interatrial and interventricular septum intact. The aortic valve is trileaflet and appears structurally normal. Mild mitral regurgitation is present. Mild tricuspid regurgitation present. Right ventricular systolic pressure is normal at < 35 mmHg. Trace/mild (physiologic) pulmonic regurgitation. The aortic root size is normal. Normal inferior vena cava with normal inspiratory collapse consistent with estimated right atrial pre ssure of 5 mmHg. There is no pericardial effusion. CONCLUSIONS -------- 1. The left ventricular size is normal. 2. There is borderline concentric left ventricular hypertrophy. 3. Mild mitral regurgitation is present. 4. Mild tricuspid regurgitation present. 5. Trace/mild (physiologic) pulmonic regurgitation. 6. There is no pericardial effusion. WATER CHASER: Gypsy Ramos RDCS
[2020-07-28 10:52] VITALS: BMI 28.3
[2020-07-28] MEDS: MAGNESIUM SULFATE-D5W PMX 1 GM in DEXTROSE/WATER 1 100ML.BAG IVPB SCH ×2 (10:57→12:29)
--- NOTE | 2020-07-28 11:09 | P.PN ---
Subjective Progress Note Date: 07/28/20 Principal diagnosis: Arrhythmia Doing well, no complaints. No sob or chest pain. No cough, no fevers or chills. No nausea or vomiting. Objective - Vital Signs Vital signs: Vital Signs Temp 97.5 F L 07/28/20 08:00 Pulse 73 07/28/20 08:00 Resp 18 07/28/20 08:00 BP 141/67 07/28/20 08:00 Pulse Ox 92 L 07/28/20 08:00 Intake & Output 07/27/20 07/28/20 07/28/20 18:59 06:59 18:59 Intake Total 1450 125 Output Total 5 Balance 1445 125 Weight 82 kg 84.7 kg 84.7 kg Intake: IV 1450 Oral 125 Output: Estimated Blood Loss 5 Other: Voiding Method Toilet Toilet # Voids 1 - Exam Constitutional: No acute distress, conversant, pleasant Eyes:Anicteric sclerae, moist conjunctiva, no lid-lag, PERRLA, ENMT: Oropharynx clear, no erythema, exudates Neck: Supple, FROM, no masses, or JVD, No carotid bruits, No thyromegaly Lungs: Clear to auscultation, Clear to percussion, Normal respiratory effort, no accessory muscle use Cardiovascular: Heart regular in rate and rhythm, No murmurs, gallops, or rubs, No peripheral edema Abdominal: Soft, Nontender, no guarding, rebound or rigidity, Normoactive bowel sounds, No hepatomegaly, No splenomegaly, No palpable mass Skin: Normal temperature, tone, texture, turgor, no induration, No subcutaneous nodules, No rash, lesions, No ulcers Extremities: No digital cyanosis, No clubbing, Pedal pulses intact and symmetrical, Radial pulses intact and symmetrical, No calf tenderness Psychiatric: Alert and oriented to person, place and time, appropriate affect, intact judgement Neuro: Muscles Strength 5/5 in all 4 extremities, Sensation to light touch grossly present throughout, Cranial nerves II-XII grossly intact, no focal sensory deficits - Labs CBC & Chem 7: 07/27/20 14:34 07/27/20 13:45 Labs: Abnormal Lab Results - Last 24 Hours (Table) 07/27/20 07/27/20 Range/Units 13:45 14:34 Lymphocytes # 0.9 L (1.0-4.8) k/uL Glucose 142 H (74-99) mg/dL Assessment and Plan Plan: Nonsustained v.tach Lytes, trops, TSH ok No more episodes reported Cardio following Consider b-blockers [place] with concentric LVH. Hyperlipidemia Peripheral neuropathy Stable Resume meds S/P Laparoscopic repair of paraesophageal hernia Management per surgery Anticipated discharge maybe today, depending on cardiology clearance. Disposition: Home
[2020-07-28] MEDS ORDERED: HYOSCYAMINE ORAL DROPS 1.875 MG/15 ML BOTTLE PO PRN (11:22)
[2020-07-28] MEDS ORDERED: HYDROcodone/APAP 5-325MG 1 EACH TAB PO PRN (11:27)
[2020-07-28] MEDS ORDERED: SIMETHICONE 40 MG/0.6 ML DROPS 2,000 MG/30 ML BOTTLE PO SCH (13:00)
[2020-07-28 13:40] VITALS: BP 122/74; PULSE 69; TEMP 97.8
--- NOTE | 2020-07-28 13:48 | P.DS ---
Providers Date of admission: 07/27/20 09:54 Expected date of discharge: 07/28/20 Attending physician: Elbert Grimm Consults: 07/27/20 13:21 Consult Physician Routine Consulting Provider: Rachell Alonso Consult Reason/Comments: Medical management Do you want consulting provider notified?: Yes 07/27/20 13:33 Consult Physician Routine Consulting Provider: Coleman Lizama Consult Reason/Comments: V TACH Do you want consulting provider notified?: Already Contacted Primary care physician: Caty [facility] Course: Discharge diagnosis 1. Paraesophageal hernia status post laparoscopic repair of paraesophageal hernia with mesh 2. Nonsustained ventricle tachycardia evaluated by cardiology patient Hospital course This 64 female who presents today for laparoscopic hiatal hernia repair. Patient has a previous history of hiatal hernia. Approximately 17 years ago she has developed recurrent per esophageal hernia. Patient is status post laparoscopic repair of paraesophageal hernia with mesh. She tolerated surgery well. Her upper GI shows moderate hesitancy of contrast passing through the surgery site. No extravasation of contrast post June fundoplication. Patient has tolerated her June clear liquid diet. Her pain is controlled. She is up and ambulating. She is afebrile. Patient also had an episode of nonsustained ventricle tachycardia. She was seen evaluated by cardiology. She is stable for discharge. Please refer to chart for any further details. Physician Emr Specialist note has been reviewed by physician. Signing provider agrees with the documented findings, assessment, and plan of care. Patient Condition at Discharge: Stable Plan - Discharge Summary Discharge Rx Participant: Yes New Discharge Prescriptions: New HYDROcodone/APAP 5-325MG [[place] 5-325] 1 tab PO Q6HR PRN 3 Days #10 tab PRN Reason: Pain Docusate [Colace] 100 mg PO BID #30 capsule Continue Atorvastatin [Lipitor] 10 mg PO HS Multivitamins, Thera [Multivitamin (formulary)] 1 tab PO DAILY Pregabalin [Lyrica] 150 mg PO TID Famotidine [Pepcid] 20 mg PO BID Zolpidem [Ambien] 10 mg PO HS PRN PRN Reason: Insomnia Discontinued Aspirin 81 mg PO DAILY Discharge Medication List Atorvastatin [Lipitor] 10 mg PO HS 07/23/18 [History] Famotidine [Pepcid] 20 mg PO BID 07/08/20 [History] Multivitamins, Thera [Multivitamin (formulary)] 1 tab PO DAILY 07/08/20 [Histor y] Pregabalin [Lyrica] 150 mg PO TID 07/08/20 [History] Zolpidem [Ambien] 10 mg PO HS PRN 07/22/20 [History] Docusate [Colace] 100 mg PO BID #30 capsule 07/28/20 [Rx] HYDROcodone/APAP 5-325MG [[place] 5-325] 1 tab PO Q6HR PRN 3 Days #10 tab 07/28/20 [Rx] Follow up Appointment(s)/Referral(s): Elbert Grimm MD [STAFF PHYSICIAN] - 1 Week Activity/Diet/Wound Care/Special Instructions: Okay to discharge when cleared by cardiology No driving while taking [place] No lifting over 10 pounds You may shower. No soaking or tub baths for 2 weeks Very light activity until you are reevaluated at your follow up appointment with your surgeon No straws or carbonated beverages Continue June clear liquid diet Discharge Disposition: HOME SELF-CARE
--- NOTE | 2020-07-28 14:01 | P.PN ---
Subjective Progress Note Date: 07/28/20 HISTORY OF PRESENT ILLNESS: Patient is status post laparoscopic repair of paraesophageal hernia with Dr. Grimm. Postop day #1. Patient was having runs of nonsustained ventricular tachycardia postoperatively. Potassium 4.3. Magnesium 1.7. Echocardiogram completed revealing ejection fraction 55-60%. Telemetry reviewed with no further episodes of nonsustained ventricular tachycardia. The patient is feeling well this morning and is hoping to be discharged home today. PHYSICAL EXAM: VITAL SIGNS: Reviewed. GENERAL: Well-developed in no acute distress. NECK: Supple. No JVD or thyromegaly LUNGS: Respirations even and unlabored. Lungs essentially clear to auscultation bilaterally. HEART: Regular rate and rhythm. S1 and S2 heard. EXTREMITIES: Normal range of motion. No clubbing or cyanosis. Peripheral pulses intact. No lower extremity edema ASSESSMENT: nonsustained ventricular tachycardia status post laparoscopic repair of paraesophageal hernia Hyperlipidemia PLAN: Give 2 grams magnesium IVPB Patient may be discharged home today from a cardiac perspective. She is to follow up on an outpatient basis with Dr. Damico Nurse practitioner note has been reviewed by physician. Signing provider agrees with the documented findings, assessment, and plan of care. Objective - Vital Signs Vital signs: Vital Signs Temp 97.8 F 07/28/20 12:00 Pulse 69 07/28/20 12:00 Resp 18 07/28/20 12:00 BP 122/74 07/28/20 12:00 Pulse Ox 93 L 07/28/20 12:00 Intake & Output 07/27/20 07/28/20 07/28/20 18:59 06:59 18:59 Intake Total 1450 125 Output Total 5 Balance 1445 125 Weight 82 kg 84.7 kg 84.7 kg Intake: IV 1450 Oral 125 Output: Estimated Blood Loss 5 Other: Voiding Method Toilet Toilet # Voids 1 - Labs CBC & Chem 7: 07/27/20 14:34 07/27/20 13:45 Labs: Abnormal Lab Results - Last 24 Hours (Table) 07/27/20 07/27/20 Range/Units 13:45 14:34 Lymphocytes # 0.9 L (1.0-4.8) k/uL Glucose 142 H (74-99) mg/dL
== END 2020-07-28 14:48 | disposition home or self-care (01) | DRG 327 ==
LOC: 2ORMAIN 09:54 → 6PED 13:28 → 4SSUR 13:48 → 3SCARD 15:45
PROVIDERS: ADMIT Surgery; ATTEND Surgery
PROC: 0BUT4JZ Supplement Diaphragm with Synthetic Substitute, Percutaneous Endoscopic Approach (ICD-10-PCS; principal; 2020-07-27 11:30)
DX: K44.9 Diaphragmatic hernia without obstruction or gangrene (principal); I47.2 Ventricular tachycardia; R13.10 Dysphagia, unspecified; E78.5 Hyperlipidemia, unspecified; Z87.891 Personal history of nicotine dependence; Z79.82 Long term (current) use of aspirin; G62.9 Polyneuropathy, unspecified; Z90.710 Acquired absence of both cervix and uterus
CPT/HCPCS: 74210; 80048; 83735; 84443; 84484; 85025; 86850; 86900; 86901; 93306

== ENCOUNTER → 2021-06-05 | Outpatient (CLI) | payer MEDICARE ==
--- NOTE | 2021-06-05 14:38 | CTL ---
EXAMINATION TYPE: CT Low Dose Lung DATE OF EXAM ORDERED: 06/05/2021 HISTORY: . Lung cancer screening CT DLP: 84.[address] CTDI: 2.2 mGy Automated exposure control for dose reduction was used. SCREENING VISIT: COMPARISON: 05/04/2015 CT chest TECHNIQUE: Low dose computed tomography scan was performed through the chest at 1 mm thick sections a nd reconstructed images in multiple planes at 1 mm and [address] DIAGNOSTIC QUALITY: Satisfactory FINDINGS: There is a 5 mm subpleural nodule posterior right upper lobe There is a a 2 mm nodule axial image 74 left upper lobe There is a calcified 2 mm nodule left upper lobe and superior segment left lower lobe. Additional 2 m m calcified nodule anterior segment right upper lobe image #212. There is a 4 mm nodule right lower lobe near the lung base. There is a 2 mm nodule right lower lobe. Diffuse centrilobular emphysema again noted. No pleural effusion or pneumothorax. No focal pneumonia. No pleural sizable thickening or calcifications. Hypertrophic and degenerative change of the spine. Surgical clips are seen in the epigastrium with ev idence of a hiatal hernia. Coronary artery calcification noted. Heart size normal. Subsegmental vick es involving the right upper lobe anterior segment bilaterally most typical of atelectasis. IMPRESSION: 1. Multiple 5 mm less nodules some of which are calcified and have a benign appearance. 2. COPD 3. Atherosclerotic change coronary arteries. CT LUNG RAD AND CT CHEST RECOMMENDATION: Lung-Rad 2 Benign Appearance or Behavior: Continue annual sc reening with LDCT in 12 months.
== END | disposition home or self-care (01) ==
LOC: RADCTMAIN 13:55
PROVIDERS: ATTEND Family Medicine
DX: Z12.2 Encounter for screening for malignant neoplasm of respiratory organs (principal); J44.9 Chronic obstructive pulmonary disease, unspecified; R91.8 Other nonspecific abnormal finding of lung field; I25.10 Atherosclerotic heart disease of native coronary artery without angina pectoris; Z87.891 Personal history of nicotine dependence
CPT/HCPCS: 71271

== ENCOUNTER 2022-10-22 12:41 | Day surgery (SDC) | payer MEDICARE ==
[2022-10-19 09:46] VITALS: BMI 24.3
[~2022-10-22 12:41] MED LIST changes: -ACETAMINOPHEN TAB 500 MG TAB PO PRN; -HEPARIN SODIUM,PORCINE 5,000 UNIT/ML 1 ML VIAL SQ PRN; +LACTATED RINGERS 1,000 ML IV SCH; -ONDANSETRON 4 MG/2 ML VIAL IVP ONE
[2022-10-22] MEDS ORDERED: LIDOCAINE 1% (10MG/ML) FOR IV START INTRADERMA ONE (13:12)
[2022-10-22 13:16] VITALS: RESP 16; TEMP 97.1
[2022-10-22] MEDS ORDERED: PROPOFOL 10 MG/ML 20 ML VIAL IV ONE (14:01)
[2022-10-22] MEDS ORDERED: LIDOCAINE 2% INJ 20 MG/ML (2 ML VIAL) ONE (14:01)
--- NOTE | 2022-10-22 14:11 | P.OP ---
Date of Procedure: 10/22/22 Preoperative Diagnosis: GERD Postoperative Diagnosis: antral gastritis Procedure(s) Performed: EGD Anesthesia: MAC Surgeon: Elbert Grimm Pathology: other (antrum) Condition: stable Disposition: PACU Description of Procedure: patient's placed on the endoscopy table in the lateral position. She received IV sedation. The gastroscope placed oropharynx passed in the esophagus and the stomach. Scope was then placed through the pylorus. The first and second portion of the duodenum appeared normal. Scope was then brought back the antrum this. Mildly inflamed. A biopsies performed. Scope was then retroflexed and the remainder the stomach appeared normal. The GE junction was at 40 cm the distal esophagus appeared normal. The proximal esophagus appeared normal. Scope withdrawn for patient.
[2022-10-22 14:32] VITALS: BP 155/68; PULSE 53
== END 2022-10-22 14:56 | disposition home or self-care (01) ==
LOC: ORWHC2ENDO 12:41
PROVIDERS: ATTEND Surgery
DX: K29.50 Unspecified chronic gastritis without bleeding (principal); K21.9 Gastro-esophageal reflux disease without esophagitis; I49.9 Cardiac arrhythmia, unspecified; I10 Essential (primary) hypertension; E78.5 Hyperlipidemia, unspecified; Z87.891 Personal history of nicotine dependence; Z79.899 Other long term (current) drug therapy
CPT/HCPCS: 88305; 43239; J2704; J2001

== ENCOUNTER → 2022-10-31 | Outpatient (CLI) | payer MEDICARE | END | disposition home or self-care (01) | LOC: LABWHC1 12:05 | PROVIDERS: ATTEND Neurological Surgery | DX: G57.81 Other specified mononeuropathies of right lower limb (principal); R00.1 Bradycardia, unspecified | CPT/HCPCS: 36415; 93005 ==

== ENCOUNTER → 2023-01-17 | Outpatient (CLI) | payer MEDICARE ==
--- NOTE | 2023-01-17 15:35 | US ---
EXAMINATION TYPE: US arterial LE single level DATE OF EXAM: 01/17/2023 3:01 PM CLINICAL INDICATION: Female, 67 years old with history of R20.2 PARESTHESIA OF SKIN; Tingling and bur batool feet and lower legs x 3 years History of: Smoker: Previous Hypertension: No Diabetic: No Hyperlipidemia: Yes TIA/CVA: No Previous Vascular Surgery: No VA: No Doppler Waveforms: Right: Multiphasic Left: Multiphasic Right Brachial Pressure: 160 Left Brachial Pressure: 156 Ankle-Brachial Indices: Right: 1.07 Left: 1.13 Toe Brachial Indices: Right: 0.56 Left: 0.41 IMPRESSION: 1. ABIs are within normal limits. TBI suggest mild peripheral arterial disease.
== END | disposition home or self-care (01) ==
LOC: RADUSWWP 14:19
PROVIDERS: ATTEND Family Medicine
DX: R20.2 Paresthesia of skin (principal); E78.5 Hyperlipidemia, unspecified; Z87.891 Personal history of nicotine dependence
CPT/HCPCS: 93922

== ENCOUNTER → 2023-06-03 | Outpatient (CLI) | payer MEDICARE ==
[2023-06-03 15:40] LABS: Blood Urea Nitrogen 13.8 mg/dL (9.0-27.0); Carbon Dioxide 26.5 mmol/L (21.6-31.8); Chloride 105 mmol/L (96-109); Potassium 4.6 mmol/L (3.5-5.5); Sodium 142 mmol/L (135-145)
[2023-06-03 15:59] LABS: HCT 44.5 % (37.2-46.3); MCH 31.3 pg (27.0-32.0); MCHC 31.5 g/dL (32.0-37.0); MCV 99.6 FL (80.0-97.0); Mean Platelet Volume 10.5 FL (9.5-12.2); NRBC Per 100 WBC 0 X 10*3/uL (0.00-0.01); Platelet Count 263 X 10*3/uL (140-440); RBC 4.47 X 10*6/uL (4.10-5.20); RDW 12.8 % (11.5-14.5); WBC 7.65 X 10*3/uL (4.50-10.00)
== END | disposition home or self-care (01) ==
LOC: LABWHC1 10:53
PROVIDERS: ATTEND Internal Medicine Interventional Cardiology
DX: Z01.812 Encounter for preprocedural laboratory examination (principal); R94.39 Abnormal result of other cardiovascular function study
CPT/HCPCS: 36415; 80051; 82565; 84520; 85027

== ENCOUNTER 2023-06-06 09:20 | Day surgery (SDC) | payer MEDICARE ==
[~2023-06-06 09:20] MED LIST changes: +ALPRAZolam 0.5 MG TAB PO PRN; +ASPIRIN 325 MG TAB PO STA; -LACTATED RINGERS 1,000 ML IV SCH; +SODIUM CHLORIDE 0.9% 1,000 ML in EMPTY BAG 1 BAG IV SCH
[2023-06-06] MEDS: SODIUM CHLORIDE 0.9% 1,000 ML IV ONE (09:32)
[2023-06-06] MEDS: ALPRAZolam 0.25 MG TAB PO PRN (09:55)
[2023-06-06 09:59] VITALS: RESP 16; TEMP 98.2
[2023-06-06] MEDS ORDERED: fentaNYL (PF) 50 MCG/ML 2 ML AMP ONE (11:09)
[2023-06-06] MEDS ORDERED: VERAPAMIL 2.5 MG/ML 2 ML AMP ONE (11:09)
[2023-06-06] MEDS ORDERED: HEPARIN SODIUM 1,000 UN/ML (10ML VL) ONE (11:09)
[2023-06-06] MEDS ORDERED: LIDOCAINE 1% INJ 10MG/ML (20 ML MDV) ONE (11:10)
[2023-06-06] MEDS: MIDAZOLAM 2 MG/2 ML VIAL IVP ONE (11:34)
[2023-06-06] MEDS: LIDOCAINE 1% INJ 10MG/ML (20 ML MDV) SQ ONE (11:35)
[2023-06-06] MEDS: VERAPAMIL SYRINGE (5 MG/10 ML) INTRAARTER ONE (11:40)
[2023-06-06] MEDS: HEPARIN SODIUM 1,000 UN/ML (10ML VL) IV ONE (11:41)
[2023-06-06] MEDS: IOPAMIDOL-370 100ML BTL INJ ONE (11:47)
--- NOTE | 2023-06-06 12:55 | CC ---
CARDIAC CATHETERIZATION REPORT PROCEDURES PERFORMED: Left heart catheterization and coronary angiography. PERFORMED BY: Dr. Fernando Damico. ANESTHESIA: Moderate conscious sedation time was 14 minutes. The patient was administered Versed. Oxygen saturation, hemodynamics and EKG were monitored closely. CLINICAL INFORMATION: Ms. Sidra Lundberg is a 67-year-old lady with history of hypertension, hyperlipidemia, nondescript chest tightness, pressure, and occasional palpitations. She had a Lexiscan stress test, which revealed inferolateral reversible defect and inferoapical lateral reversible defect and therefore, she was advised cardiac cath after due discussion regarding risks, benefits, and options. PROCEDURE NOTE: Under local anesthesia and strict aseptic precautions, a 6-Slovenian introducer was placed in the right radial artery. I used a JL3.5 and JR4 catheters, performed coronary angiography. The same right catheter was used to check LV pressure, but LV-gram was not performed. The sheath was taken out and TR band applied as per protocol with saturation in the fingers of right hand of 95%. The patient tolerated procedure well without complications. CARDIAC CATHETERIZATION FINDINGS: The left ventricular end-diastolic pressure was 10 mmHg without any gradient across aortic valve. CORONARY ANGIOGRAPHY FINDINGS: Right Coronary Artery: Large dominant vessel, no significant disease, distally bifurcates into large PLV, smaller PDA, minor irregularities, no significant disease. Left Main Coronary Artery: Short patent vessel, no significant disease, bifurcates into LAD and circumflex. Left Anterior Descending Coronary Artery: Good caliber vessel, large distribution, distal 1/4 is small in caliber, gives off several septal and diagonal branches. The distal aspect of LAD curves over the apex and supplies the inferoapical portion. The distal 1/3 has natural narrowing but no significant disease. LAD therefore is a relatively disease free vessel which is a large distribution. Left Posterior Circumflex Coronary Artery: Small nondominant vessel, gives off a small obtuse marginal, runs laterally. No significant disease. Left ventriculogram was not performed. FINAL IMPRESSION: This patient has a right-dominant system normal filling pressures, no gradient. No significant obstructive disease is noted. Distal LAD shows some natural narrowing, but no obstructive disease. Dominant RCA and nondominant circumflex are free of significant disease. RECOMMENDATIONS: Advised to continue current medical therapy and risk factor modification. I will cut back the beta hamilton to 25 mg metoprolol succinate daily. Risk factor modification and continued medical therapy advised. There was no family available to talk to, I spoke to the patient at length. She will be discharged later on today and will see me in the office within a week. PEACE / BENJI: [id number] /
[2023-06-06 17:03] VITALS: BP 105/62; PULSE 50
== END 2023-06-06 17:17 | disposition home or self-care (01) ==
LOC: CATHCVL 09:20
PROVIDERS: ATTEND Internal Medicine Interventional Cardiology
DX: R94.39 Abnormal result of other cardiovascular function study (principal); E78.5 Hyperlipidemia, unspecified; I10 Essential (primary) hypertension; Z79.899 Other long term (current) drug therapy
CPT/HCPCS: 93458; 99152; C1769; C1894; J2250; J2001; J1644; Q9967

== ENCOUNTER → 2023-09-26 | Outpatient (CLI) | payer MEDICARE ==
[2023-09-26 14:00] VITALS: BP 142/82; PULSE 76; RESP 15; TEMP 97.2
--- NOTE | 2023-09-26 14:52 | P.PAINPG ---
Objective - Vital Signs Vital signs: Vital Signs Temp 97.2 F L 09/26/23 12:59 Pulse 76 09/26/23 12:59 Resp 15 09/26/23 12:59 BP 142/82 09/26/23 12:59 Pulse Ox 99 09/26/23 12:59 FiO2 Intake & Output 09/25/23 09/26/23 09/26/23 18:59 06:59 18:59 Weight 67.585 kg PQRS Measure Charge Sheet Mode of Arrival: Ambulatory Comment: HISTORY OF PRESENT ILLNESS: A 67 yr old female as a referral from Dr Cruz/ Bria presents today w severe and chronic LBP > 6 mo secondary to DDD, spondylosis and facet arthropathy without myelopathy for evaluation. Pt states pain level is provoked at 9 /10 in intensity, constant, localized in the lower lumbar spine, predominantly axial, burning in character w occasional shooting pain towards the BL calves and feet. Pain is provoked by any activity. Pain is alleviated by PT x 6 wks which ended in 2021, physician guided home exercises/ stretches every other day since Fall 2021, medications ([place] 10/325mg #[address] Cruz, Duloxetine), repositioning and rest . Pt stated she stopped Lyrica 150mg #90 in Nov 2022 because it caused memory changes. Oswestry axial pain score at 36. PMH: OA, GERD, Hyperlipidemia, HTN, Raynaud's Phenomenon PSH: Cholecystectomy, Hernia Repair, Hysterectomy, EGD/ Colonoscpy, HH Repair SH: Former tobacco user, No ETOH abuse, No illicit drug use FH: Noncontributory All: See list Meds: See list REVIEW OF ORGAN SYSTEMS: CONSTITUTIONAL: No fevers or chills. No recent weight loss. NEUROLOGICAL: + numbness and tingling along the distal extremities. No seizure disorders or headaches. MUSCULOSKELETAL: + pain PSYCHIATRIC: Denies current depression or suicidal thoughts. Physical Examinations : Constitutional : Cooperative , not in acute distress . Neurologic : Cranial nerve II to XII intact. No focal neurological deficits. Psychiatric : alert & oriented x 3. Matching mood & appropriate affect. Judgment & insight intact. Musculoskeletal : Cervical Spine Motor strength in the deltoid and biceps: Normal right side. Normal Left side Motor strength biceps and the wrist extensors: Normal right side . Normal left side Motor strength in the triceps muscle: Normal right side. Normal left side Deep tendon reflexes: Normal at the biceps. Normal at Brachioradialis. Normal at triceps Vertebral body tenderness to deep palpation over Cervical facet loading test: positive bilaterally Spurling test: positive bilaterally Neck distraction test: positive bilaterally Shey sign: positive bilaterally Lumbar spine Motor strength lower extremities ,thigh and legs 5/5 Right side , 5/5 Left side Deep tendon reflexes : Normal Knee Jerk. Normal Ankle Jerk Vertebral body tenderness over Sidhu Test positive L5-S1 Lumbar facet Loading Test: positive Right / positive Left Range of motion of the lumbar spine Flexion 30 degrees, extension 10 degrees Straight Leg Raise test: Left/ Right positive at degrees Tom test: positive right / positive left. Severe tenderness over the Sacroiliac joint on the Right / Left sides Gaenslen test: positive bilaterally Seated flexion test: positive bilaterally. Sacral spine : Severe tenderness over the Sacroiliac joint: right side / left side Range of motion: Flexion of the lumbar spine <60 degrees Range of motion: Extension of the lumbar spine <20 degrees Gaenslen's Test positive Tom test: positive right side / left side Thigh Thrust Test Sacral Thrust Test Imaging: None on file Assessment/ Plan : Peripheral neuropathy, Lumbar DDD Recommendation of lumbar x ray M51.36 May need additional testing if clinically indicated. Opiate/ Narcotic agreement for Lyrica 75mg #60 signed 09/26/23. Add Lidoderm 5% #30 w 1 RF. Risks, benefits of procedure discussed and patient verbalized understanding. Admits to anti- coagulant use or medical history of diabetes. Protocol for discontinuation/ continuation of medications rock procedure discussed. Minimal anesthesia provided, if clinically indicated, consisting of Versed and Fentanyl. All questions answered. I have spent greater than 30 minutes on patient care today. Dr Roberson was available by phone for the evaluation of this patient. The time was used to review the medical records including relevant urine studies and Prescription history (MAPs), review of the available imaging, evaluation and examination of the patient, coordination of care with the medical staff and if applicable referring physicians, as well as creation of the medical record - Pain Location Bilateral Calf Non-Pharmacological Interventions: Heat, Ice, Inactivity, Position/Reposition Pharmacological Interventions: Scheduled Medication PQRS Narrative: Smoking Status Former smoker Blood Pressure 142/82 Pain Intensity [Bilateral Calf 8 ] Scale Used Numeric (1 - 10) Hx Alcohol Use (MH) No Home Medications: Ambulatory Orders Atorvastatin [Lipitor] 10 mg PO HS 07/23/18 Zolpidem [Ambien] 10 mg PO HS PRN 07/22/20 DULoxetine HCL [Cymbalta] 60 mg PO DAILY 10/19/22 Metoprolol Succinate [Metoprolol Succinate ER] 25 mg PO DAILY 10/19/22 Pantoprazole [Protonix] 40 mg PO DAILY 10/19/22 Aspirin 81 mg PO DAILY 06/03/23 Multivit-Min/Iron/Folic/Lutein [Centrum Silver Women Tablet] 1 tab PO DAILY 06/03/23 oxyCODONE HCL/ACETAMINOPHEN [Oxycodone-Acetaminophn 7.5-325] 1 each PO TID PRN 06/03/23 Lidocaine 5% Patch [Lidoderm] 1 each TP DAILY 30 Days #30 patch 09/26/23 Pregabalin [Lyrica] 75 mg PO BID 30 Days #60 cap 09/26/23 Controlled Substance Measures - Controlled Substance Measures Is patient prescribed a controlled substance at discharge?: Yes When asked, does pt state using other controlled substances?: Yes If prescribed controlled substance>3 days was MAPS reviewed?: Yes If Rx opioid, was Start Talking consent form obtained?: Yes Was information provided regarding opioid addiction?: Yes
== END ==
LOC: PNWHC3 12:28
PROVIDERS: ATTEND Specialist
DX: M51.37 Other intervertebral disc degeneration, lumbosacral region (principal); M47.817 Spondylosis without myelopathy or radiculopathy, lumbosacral region; G62.9 Polyneuropathy, unspecified; Z87.891 Personal history of nicotine dependence
CPT/HCPCS: 99211

== ENCOUNTER → 2023-09-26 | Outpatient (CLI) | payer MEDICARE ==
--- NOTE | 2023-09-27 15:00 | XR ---
EXAMINATION TYPE: XR lumbar spine 3V DATE OF EXAM: 09/26/2023 Comparison: None Clinical History: 67-year-old female M51.36 OTHER INTERVERTEBRAL DISC DEGENERATION, LUMBAR REGION Findings: Moderate degenerative disc disease and endplate spondylosis especially upper and mid lumbar spine with rightward truncal shift which could be positional. Hypertrophic facet arthropathy especia lly mid to lower lumbar spine. Vertebral body heights are preserved and alignment is maintained. Baas trup's disease lower lumbar spine. Impression: 1. Moderate multilevel disc/endplate degenerative change. 2. Hypertrophic facet arthropathy mid to lower lumbar spine. 3. No vertebral compression collapse or malalignment.
== END | disposition home or self-care (01) ==
LOC: RADXRMAIN 13:42
PROVIDERS: ATTEND Specialist
DX: M51.36 Other intervertebral disc degeneration, lumbar region (principal); M47.816 Spondylosis without myelopathy or radiculopathy, lumbar region
CPT/HCPCS: 72100

== ENCOUNTER → 2023-10-03 | Outpatient (CLI) | payer MEDICARE ==
--- NOTE | 2023-10-03 14:06 | MR ---
EXAMINATION TYPE: MR lumbar spine wo con DATE OF EXAM: 10/03/2023 9:19 AM CLINICAL INDICATION:Female, 68 years old with history of M51.36 lumbar pain; PHH, Neuropathy trent lowe r extremities COMPARISON: 09/26/2023 TECHNIQUE: Multi planar, multi sequence imaging was performed utilizing: T1-weighted, T2-weighted, a nd turbo inversion recovery imaging of the lumbar spine. IV Contrast: cc . (None if empty) FINDINGS: Alignment: The lumbar vertebral bodies have preserved heights and alignment. Cord: The conus medullaris and the distal spinal cord appear unremarkable with regards to their signa l intensity and morphology. Bones/Discs: Mild degeneration changes throughout the spine with osteophyte formation and facet joint arthropathy. Intervertebral disc signal is maintained. T12-L1: No evidence of significant spinal canal stenosis or neural foraminal stenosis. L1-L2: No evidence of significant spinal canal stenosis or neural foraminal stenosis. L2-L3: Disc bulge and facet joint arthropathy result in mild spinal canal and mild bilateral neural f oraminal stenosis. L3-L4: Disc bulge and facet joint arthropathy result in mild spinal canal and mild bilateral neural f oraminal stenosis. L4-L5: No evidence of significant spinal canal stenosis or neural foraminal stenosis. L5-S1: The disc has a rounded posterior morphology without significant spinal canal stenosis. Facet j oint arthropathy with mild bilateral neural foraminal stenosis. No significant spinal canal or neural foraminal stenosis in the remainder of the visualized levels. Other findings: None. IMPRESSION: No definitive evidence of disc herniation or significant spinal canal stenosis. [id number] disc degeneration with associated osteoarthritic changes. No evidence for significan t neural foraminal stenosis.
== END | disposition home or self-care (01) ==
LOC: RADMRIMAIN 08:23
PROVIDERS: ATTEND Specialist
DX: M47.816 Spondylosis without myelopathy or radiculopathy, lumbar region (principal); M51.36 Other intervertebral disc degeneration, lumbar region
CPT/HCPCS: 72148

== ENCOUNTER 2023-12-05 11:15 | Day surgery (SDC) | payer MEDICARE ==
[2023-12-05] MEDS ORDERED: methylPREDNISolone ACETATE 40 MG/ML 1 ML VIAL ONE (12:27)
[2023-12-05] MEDS ORDERED: ROPIVACAINE 5MG/ML 20ML VIAL ONE (12:27)
== END 2023-12-05 12:55 ==
LOC: ORPAIN 11:15
PROVIDERS: ATTEND Anesthesiology
DX: M79.18 Myalgia, other site (principal); M54.14 Radiculopathy, thoracic region; Z87.891 Personal history of nicotine dependence; Z79.82 Long term (current) use of aspirin; Z79.899 Other long term (current) drug therapy
CPT/HCPCS: 20553

== ENCOUNTER → 2023-12-09 | Outpatient (CLI) | payer MEDICARE ==
--- NOTE | 2024-01-03 21:38 | CTL ---
Site ID [facility] Patient Sidra Melendrez D ID [id number] Age/Gender: 68Y, F Order # N/A Procedure CT LOW DOSE LUNG CANCER SCREENING Date 12/09/2023 8:17:00 AM EXAMINATION TYPE: CT Low Dose Lung DATE OF EXAM ORDERED: 12/19/2023 HISTORY: Personal history of nicotine dependence, 30 pack-year history, not current smoker. Lung canc er screening CT DLP: 100.[address] CTDI: 2.50 mGy Automated exposure control for dose reduction was used. SCREENING VISIT: Follow-up COMPARISON: CT Low Dose Lung indication screening 06/05/2021, CT chest 05/04/2015 TECHNIQUE: Low dose computed tomography scan was performed through the chest at 1 mm thick sections a nd reconstructed images in multiple planes at 1 mm and [address] DIAGNOSTIC QUALITY: Satisfactory FINDINGS: Nodules: Stable left lateral upper lobe 6 mm groundglass nodule (series 6, image 17). Stable posterior left upper lobe 2.6 mm solid pulmonary nodule (series 6, image 18). Stable left lower lobe 4.9 mm pulmonary nodule (series 6, image 27). Stable left lower lobe lateral to 2.4 mm pulmonary nodule (series 6, image 42). Stable right middle lobe 2.0 cm calcified granuloma. No new or enlarging pulmonary nodules. LUNGS: COPD: Severity: Moderate Fibrosis: Severity: None Lymph nodes: None Other findings: Right lower lobe linear subsegmental atelectasis versus scarring. RIGHT PLEURAL SPACE: Effusion: None Calcification: None Thickening: None Pneumothorax: None LEFT PLEURAL SPACE: Effusion: None Calcification: None Thickening: None Pneumothorax: None HEART: Heart Size: Normal Coronary Calcification: Small Pericardial Effusion: None OTHER FINDINGS: Upper abdomen: Postsurgical changes the GE junction from hernia repair. Bony thorax: No acute process. Hypertrophic and degenerative changes of the thoracic spine. Supraclavicular region: None Other: Mild atherosclerotic calcification of the aortic arch and its branches. IMPRESSION: 1. Several stable pulmonary nodules measuring up to 6 mm. No new or enlarging pulmonary nodules. 2. Moderate COPD changes. CT LUNG RAD AND CT CHEST RECOMMENDATION: Lung-Rad 2 Benign Appearance or Behavior: Continue annual sc reening with LDCT in 12 months. S Modifier (other clinically significant findings): None
== END | disposition home or self-care (01) ==
LOC: RADCTMAIN 08:02
PROVIDERS: ATTEND Family Medicine
DX: Z12.2 Encounter for screening for malignant neoplasm of respiratory organs (principal); Z87.891 Personal history of nicotine dependence; J44.9 Chronic obstructive pulmonary disease, unspecified; I70.0 Atherosclerosis of aorta
CPT/HCPCS: 71271